=== PATIENT | female | born 1935 | race Caucasian/White ===

== ENCOUNTER 2016-10-23 15:57 | Observation (INO) | payer MEDICARE ==
[~2016-10-23 15:57] MED LIST: ACETAMINOPHEN325 M2 PO; ASPIR 8181 M1 PO; ASPIR 8181 MG PO; BABY ASPIRIN81 MG PO; BENADRYL; BENADRYL ALLERG25 M PO; BENADRYL ALLERG25 M1 PO; CALCIUM 500 MG1 EACH PO; CALCIUM CARBON500 M2 PO; CEFTIN250 M1 PO; CENTRUM SILVER1 EAC3 PO; CENTRUM SILVER1 TA PO; CLONIDINE HCL0.2 MG PO; CRESTOR5 MG PO; CRESTOR5 MG/TAB PO; DIOVAN160 M PO; DIOVAN160 M1 PO; FISH OIL 1,0001 CA PO; FISH OIL 1,0001 EA10 PO; FISH OIL 1,2001 EAC4 PO; FUROSEMIDE20 M1 PO; FUROSEMIDE20 MG PO; HYDROCHLOROTHIA25 M1 PO; HYDROCHLOROTHIA25 MG PO; HYDROCHLOROTHIA50 M1 PO; IMDUR30 MG PO; ISOSORBIDE MONO30 M4 PO; ISOSORBIDE MONO60 M3 PO; LOPRE PO; LOPRESSOR50 MG PO; NITROGLYCERIN0.4 M2 SL; NITROGLYCERIN0.4 MG SL; NORVASC10 M2 PO; NORVASC10 MG PO; OS-CAL 500+D31 EAC1 PO; OS-CAL 500500 MG/TA1 PO; OSCAL; PLAVIX75 M1 PO; PLAVIX75 MG PO; POTASSIUM CHLO20 ME3 PO; POTASSIUM CHLO20 MEQ PO; PRILOSEC; PRILOSEC OTC20 M1 PO; PRILOSEC OTC20 MG PO; RANEXA500 M1 PO; TRICOR145 M1 PO; TRICOR145 M2 PO; TYLENOL; TYLENOL EXTRA500 M1; TYLENOL EXTRA500 M1 PO; TYLENOL500 MG PO; VITAMIN C1000 M1 PO; VITAMIN C250 MG PO; VITAMIN C250 MG/TAB PO
[2016-10-23 16:44] LABS: BASO % 0.3 % (0-2); EOS % 2.7 % (0-7); EOSINOPHIL ABSOLUTE COUNT 0.3 tho/cmm (0.0-0.7); HCT-HEMATOCRIT 40.3 % (34.0-49.0); HGB-HEMOGLOBIN 13.5 gm/dl (12.0-15.5); IMMATURE GRANULOCYTES ABSOLUTE 0.04 tho/cmm (0-0.03); IMMATURE GRANULOCYTES PERCENT 0.4 % (0-0.3); LYMPH % 37.1 % (20-45); LYMPH ABSOLUTE COUNT 3.4 tho/cmm (0.8-4.5); MCH (MEAN CORPUSCULAR HGB) 25.3 pg (28.0-32.0); MCHC MEAN CORPUSCULAR HGB CONC 33.5 % (32.0-36.0); MCV (MEAN CELL VOLUME) 75.6 fl (82.0-96.0); MEAN PLATELET VOLUME 11.2 cmc (9.4-12.4); MONO % 10.3 % (0-12); NEUTROPHIL ABSOLUTE COUNT 4.5 tho/cmm (1.6-8.0); NEUTROPHIL-AUTOMATED 4.5 tho/cmm (1.6-8.0); NEUTROPHILS % 49.2 % (40-80); PLATELET COUNT 180 tho/cmm (150-450); RED BLOOD COUNT 5.33 mil/cmm (4.00-5.20); WHITE BLOOD COUNT 9.2 tho/cmm (4.0-10.0)
[2016-10-23 17:01] LABS: ALBUMIN 3.7 g/dl (3.5-5.0); ALKALINE PHOSPHATASE 50 U/L (33-138); ALT/SGPT 20 U/L (12-78); ANION GAP 15 mmol/L (0-20); AST/SGOT 23 U/L (10-40); BILIRUBIN,TOTAL 0.5 mg/dl (0-1.5); BLOOD UREA NITROGEN 20 mg/dl (6-24); CARBON DIOXIDE-VENOUS 22 mmol/L (22-32); CHLORIDE 102 mmol/l (96-110); CREATININE 0.99 mg/dl (0.50-1.10); GLUCOSE 98 mg/dL (70-110); POTASSIUM 4.3 mmol/L (3.7-5.1); SODIUM 135 mmol/L (135-145); eGFR VALUE FOR BLACK 62 mL/Min
[2016-10-24] MEDS ORDERED: NITROGLYCERIN0.4 M2 SL (15:01)
== END 2016-10-24 15:35 ==
LOC: EDMED 15:57 → EMR2 18:14 → 5WD 22:52
PROVIDERS: Emergency Medicine; ADMIT Internal Medicine Clinical Cardiac Electrophysiology
DX: I25.110 Atherosclerotic heart disease of native coronary artery with unstable angina pectoris (principal); I42.9 Cardiomyopathy, unspecified; I34.0 Nonrheumatic mitral (valve) insufficiency; I07.1 Rheumatic tricuspid insufficiency; R42 Dizziness and giddiness; E78.5 Hyperlipidemia, unspecified; I12.9 Hypertensive chronic kidney disease with stage 1 through stage 4 chronic kidney disease, or unspecified chronic kidney disease; N18.9 Chronic kidney disease, unspecified; M19.90 Unspecified osteoarthritis, unspecified site; Z79.02 Long term (current) use of antithrombotics/antiplatelets; Z79.82 Long term (current) use of aspirin; Z79.899 Other long term (current) drug therapy; Z88.0 Allergy status to penicillin; Z88.1 Allergy status to other antibiotic agents; Z82.49 Family history of ischemic heart disease and other diseases of the circulatory system; Z95.1 Presence of aortocoronary bypass graft; Z90.710 Acquired absence of both cervix and uterus; Z90.89 Acquired absence of other organs; Z98.890 Other specified postprocedural states
CPT/HCPCS: A9500; C8929; G0378; J2785; J7030